=== PATIENT | female | born 1990 ===

== ENCOUNTER 2017-02-20 16:14 | Emergency (ER) | payer SELFPAY ==
[2017-02-20 16:14] VITALS: BMI 27.0
[2017-02-20 16:26] VITALS: BP 121/73; PULSE 82; RESP 20; TEMP 98.3; O2SAT 99
--- NOTE | 2017-02-20 17:27 | ED PDOC ---
HPI: Abdomen Time Seen by Provider: 02/20/17 16:51 Chief Complaint (Nursing): Female Genitourinary Chief Complaint (Provider): Abdominal Pain History Per: Patient History/Exam Limitations: no limitations Onset/Duration Of Symptoms: Hrs (x7.5) Outside of [place] travel?: No Current Symptoms Are (Timing): Still Present Severity: Moderate Location Of Pain/Discomfort: Suprapubic, Other (pelvic) Quality Of Discomfort: "Pain" ("electricity") Associated Symptoms: denies: Other (no vaginal bleeding) Additional Complaint(s): Carmen Mariscal is a 26 year old female, with no pertinent past medical history, who presents to the ED on 02/20/17 for the evaluation of moderate suprapubic/ pelvic abdominal pain that she has experienced for approximately 7.5 hours, onset of which was as she had been engaging in sexual intercourse. Pain, described as dalia to "electricity", had reportedly radiated superiorly towards her chest, with patient stating that it had been so strong initially that she had been unable to move on her own. Patient reports experiencing relief after medicating with Advil 400mg, but that pain returned 2 hours later and has persisted since, prompting ED visit. Denies vaginal bleeding. PMD: [facility] Past Medical History Reviewed: Historical Data, Nursing Documentation, Vital Signs Vital Signs: Last Vital Signs Temp 98.3 F 02/20/17 16:24 Pulse 82 02/20/17 16:24 Resp 20 02/20/17 16:24 BP 121/73 02/20/17 16:24 Pulse Ox 99 02/20/17 20:48 - Medical History PMH: No Chronic Diseases - Surgical History Surgical History: No Surg Hx - Family History Family History: States: Unknown Family Hx - Social History Ex-Smoker (has not smoked in the last 12 months): Yes Alcohol: Social Drugs: Denies - Home Medications Home Medications: Ambulatory Orders Medication Instructions Recorded Vit No.130/Iron/FA 1 tab PO DAILY 06/01/16 [ Vitamins] Bethanechol Chloride [Urecholine] 5 mg PO QID #20 tablet 06/03/16 Ferrous Sulfate [Feosol] 325 mg PO BID #60 tab 06/03/16 Ibuprofen [Motrin Tab] 600 mg PO Q6 PRN #30 tab 06/03/16 Ibuprofen [Motrin Tab] 600 mg PO Q6 #30 tab 02/20/17 - Allergies Allergies/Adverse Reactions: Allergies Allergy/AdvReac Type Severity Reaction Status Date / Time No Known Allergies Allergy Verified 02/20/17 16:23 Review of Systems Gastrointestinal: Positive for: Abdominal Pain (suprapubic) Genitourinary Female: Positive for: Pelvic Pain. Negative for: Vaginal Bleeding Physical Exam - Reviewed Nursing Documentation Reviewed: Yes Vital Signs Reviewed: Yes - Physical Exam Appears: Positive for: Non-toxic, No Acute Distress Head Exam: Positive for: ATRAUMATIC, NORMOCEPHALIC Cardiovascular/Chest: Positive for: Regular Rate, Rhythm. Negative for: Murmur Respiratory: Positive for: Normal Breath Sounds. Negative for: Respiratory Distress Gastrointestinal/Abdominal: Positive for: Soft, Tenderness (right suprapubic; (- ) McBurney's). Negative for: Guarding, Rebound Pelvic Exam: Positive for: External Exam Normal, Other (examination chaperoned by Candy GARCÍA). Negative for: Blood, Lesions Neurologic/Psych: Positive for: Alert, Oriented - ECG O2 Sat by Pulse Oximetry: 99 (RA) Pulse Ox Interpretation: Normal Medical Decision Making Medical Decision Makin:51 Initial Impression: abdominal pain during intercourse Initial Plan: * Pelvis/Transvaginal US * Upreg * Udip * Tramadol 50mg PO * Reevaluation 19:00 Patient will be endorsed over to Dieter Quinteros MD, pending US, reevaluation and final disposition. Condition fair. Scribe Attestation: Documented by Emily Ascencio, acting as a scribe for Nancy Guzman MD. Provider Scribe Attestation: All medical record entries made by the Scribe were at my direction and personally dictated by me. I have reviewed the chart and agree that the record accurately reflects my personal performance of the history, physical exam, medical decision making, and the department course for this patient. I have also personally directed, reviewed, and agree with the discharge instructions and disposition. Disposition - Clinical Impression Clinical Impression: Female genitourinary symptoms - Patient ED Disposition Is Patient to be Admitted: Transfer of Care - Disposition [facility]] Disposition: Transfer of Care Disposition Time: 19:00 Condition: STABLE Prescriptions: Ibuprofen [Motrin Tab] 600 mg PO Q6 #30 tab Instructions: Ovarian Cyst (ED) Forms: [facility] ED School/Work Excuse Patient Signed Over To: Dieter Quinteros Handoff Comments: Pending ultrasound.
--- NOTE | 2017-02-20 19:24 | ED PDOC ---
- ECG O2 Sat by Pulse Oximetry: 99 (RA) Medical Decision Making Medical Decision Makin:00 Patient endorsed over to me by Nancy Guzman MD, pending remainder of ED workup, reevaluation and disposition. IMPRESSION: No evidence of ovarian torsion, free fluid, or other significant acute abnormality. 2.1 cm complex cystic lesion in the right ovary, most likely a corpus luteal cyst. 2044: Pt. feeling better, told to f/u w/ BOOKKEEPING MACHINE MECHANIC next week. Return precautions given. Scribe Attestation: Documented by Emily Ascencio, acting as a scribe for Dieter Quinteros MD. Provider Scribe Attestation: All medical record entries made by the Scribe were at my direction and personally dictated by me. I have reviewed the chart and agree that the record accurately reflects my personal performance of the history, physical exam, medical decision making, and the department course for this patient. I have also personally directed, reviewed, and agree with the discharge instructions and disposition. Disposition - Clinical Impression Clinical Impression: Corpus luteum cyst - POA Present On Arrival: None - Disposition [facility]errals[facility] [[facility]] Disposition: Routine/Home Disposition Time: 20:45 Condition: STABLE Prescriptions: Ibuprofen [Motrin Tab] 600 mg PO Q6 #30 tab
--- NOTE | 2017-02-20 20:42 | US ---
EXAM: US Pelvis Complete, Transabdominal US Pelvis, Transvaginal CLINICAL HISTORY: 26 years old, female; Pain; Pelvic pain; Additional info: Suprapubic pain TECHNIQUE: Real-time transabdominal and transvaginal pelvic ultrasound (complete) with image documentation. Transvaginal imaging was used for better evaluation of the endometrium and adnexa. EXAM DATE/TIME: 02/20/2017 4:57 PM COMPARISON: Prior obstetrical ultrasound of 01/15/2016. FINDINGS: Uterus: Within normal limits in appearance. Measures 8.7 x 4.0 x 4.5 cm. Endometrial stripe does not appear abnormally thickened, measuring 1 cm in AP dimensions. Cervix appears closed. Right ovary: Measures 3.1 x 2.2 x 2.7 cm. Contains a 2.1 cm complex cystic lesion. This lesion has a thick wall and demonstrates increased peripheral blood flow on color imaging. It most likely represents a corpus luteal cyst, given its appearance. No followup is warranted based on the imaging findings, unless otherwise clinically indicated. Flow seen in the right ovary on color and Doppler imaging, with no evidence of torsion. Left ovary: Within normal limits in appearance. Measures 2.6 x 1.5 x 2.2 cm. Flow seen in the left ovary on color and Doppler imaging, with no evidence of torsion. Cul-de-sac: No free fluid. IMPRESSION: No evidence of ovarian torsion, free fluid, or other significant acute abnormality. 2.1 cm complex cystic lesion in the right ovary, most likely a corpus luteal cyst. See above for remaining findings.
== END 2017-02-20 21:40 | disposition home or self-care (01) ==
LOC: H.ER 16:14
DX: R10.2 Pelvic and perineal pain (principal); N83.209 Unspecified ovarian cyst, unspecified side

== ENCOUNTER 2018-10-06 21:10 | Emergency (ER) | payer MEDICAID, OTHER ==
[2018-10-06 21:10] VITALS: BMI 25.9
[2018-10-06 21:16] VITALS: BP 113/73; PULSE 96; RESP 16; TEMP 98.5; O2SAT 99
[2018-10-06] MEDS ORDERED: Fluconazole 150 MG TAB PO ONE ×2 (21:40→22:11)
--- NOTE | 2018-10-06 21:41 | ED PDOC ---
HPI: Female Pain Time Seen by Provider: 10/06/18 21:18 Chief Complaint (Nursing): Female Genitourinary Chief Complaint (Provider): vaginal discharge History Per: Patient History/Exam Limitations: no limitations Onset/Duration Of Symptoms: Days (x2) Current Symptoms Are (Timing): Still Present Associated Symptoms: denies: Fever, Chills, Nausea, Vomiting, Diarrhea, Urinary Symptoms Additional Complaint(s): Carmen Mariscal is a 28 year old female, with a past medical history of ovarian cysts, who presents to the emergency department for evaluation of a thick white vaginal discharge associated with itching onset for x2 days. Patient states she has a history of yeast infections with similar symptoms. She did not take any medications prior to arrival. Patient also expresses concern for UTI although she denies any urinary symptoms. Patient reports she is sexually active with one male partner and is not concerned for STDs. She denies any fever, chills, abdominal pain, nausea, vomit, diarrhea, cough, shortness of breath or vaginal bleeding. No further medical complaints. LMP Sep 26. PMD: [facility]. Past Medical History Reviewed: Historical Data, Nursing Documentation, Vital Signs Vital Signs: Last Vital Signs Temp 98.5 F 10/06/18 21:13 Pulse 96 H 10/06/18 21:13 Resp 16 10/06/18 21:13 BP 113/73 10/06/18 21:13 Pulse Ox 99 10/06/18 21:13 - Medical History Other PMH: ovarian cysts - Surgical History Surgical History: No Surg Hx - Family History Family History: States: Unknown Family Hx - Home Medications Home Medications: Ambulatory Orders Medication Instructions Recorded Cetirizine HCl [Zyrtec Allergy] 10 mg PO DAILY 04/22/17 RX: Ketotifen Fumarate [Zaditor] 1 drop BOTHEYES Q8 #1 drops 04/22/17 RX: metroNIDAZOLE 0.75% [Metrogel 1 applic VAG HS #1 tube 04/22/17 Cream] RX: Clotrimazole 1% Vaginal 1 applic VG BID #1 tube 10/06/18 [Lotrimin 1% Vaginal] - Allergies Allergies/Adverse Reactions: Allergies Allergy/AdvReac Type Severity Reaction Status Date / Time No Known Allergies Allergy Verified 10/06/18 21:13 Review of Systems ROS Statement: Except As Marked, All Systems Reviewed And Found Negative Constitutional: Negative for: Fever, Chills Respiratory: Negative for: Cough, Shortness of Breath Gastrointestinal: Negative for: Nausea, Vomiting, Abdominal Pain, Diarrhea Genitourinary Female: Positive for: Vaginal Discharge. Negative for: Dysuria, Frequency, Hematuria, Vaginal Bleeding Physical Exam - Reviewed Nursing Documentation Reviewed: Yes Vital Signs Reviewed: Yes - Physical Exam Comments: GENERAL APPEARANCE: Patient is awake, alert, oriented x 3, in no acute distress. Resting comfortably SKIN: Warm, dry; (-) cyanosis. EYES: (-) conjunctival pallor. ENMT: Mucous membranes moist. Airway patent: (-) stridor. NECK: Supple, FROM CHEST AND RESPIRATORY: (-) wheezing; (-) rales, (-) rhonchi; breath sounds equal bilaterally. Respirations even and nonlabored. HEART AND CARDIOVASCULAR: (-) irregularity ABDOMEN AND GI: Soft; (-) tenderness (-) guarding (-) distention (-) CVA tenderness EXTREMITIES: (-) deformity NEURO AND PSYCH: Mental status as above; (-) focal findings. Gait: Steady. Speech: clear. (-) facial asymmetry - Laboratory Results Urine POC: Negative Urine dip results: Positive for: Blood (lysed). Negative for: Leukocyte Esterase, Nitrate, Ketones, Glucose, Bilirubin, Protein - ECG O2 Sat by Pulse Oximetry: 99 (RA) Pulse Ox Interpretation: Normal Medical Decision Making Medical Decision Making: Time: 21:15 Initial Impression: Yeast infection Initial Plan: -- test --Chlamydia/GC RNA, TMA --Diflucan 150 mg PO --Urine culture --Urinalysis --Reevaluation Upreg: negative 2230 U/A: unremarkable On re-evaluation, patient reports improvement of symptoms. On exam, patient remains AAOx3, in no acute distress. Lungs clear to auscultation, cardiac RRR, abdomen soft, non-tender, repeat neuro exam shows no focal findings. Vitals stable. Lab / Diagnostic results d/w the patient in great detail. Diagnosis of yeast infection, vaginitis d/w the patient. Based on history, exam and diagnostic results, plan will be for outpatient follow up with PMD/DEALER RELATIONSHIP MANAGER. Patient instructed to follow-up with pmd / referral provided / the clinic in 1- 2 days without fail. Advised to take medication as prescribed. Return to the emergency room at any time for any new or worsening symptoms. Patient states she fully agrees with and understands discharge instructions. States that she agrees with the plan and disposition. Verbalized and repeated discharge instructions and plan. I have given the patient opportunity to ask any additional questions. Scribe Attestation: Documented by Jose L Pritchett, acting as a scribe for Joyce Simon PA-C Provider Scribe Attestation: All medical record entries made by the Scribe were at my direction and personally dictated by me. I have reviewed the chart and agree that the record accurately reflects my personal performance of the history, physical exam, medical decision making, and the department course for this patient. I have also personally directed, reviewed, and agree with the discharge instructions and disposition. Disposition - Clinical Impression Clinical Impression: Yeast infection - Patient ED Disposition Is Patient to be Admitted: No Counseled Patient/Family Regarding: Studies Performed, Diagnosis, Need For Followup, Rx Given - Disposition [facility]errals: [facility] [Outside] Disposition: Routine/Home Disposition Time: 22:30 Condition: STABLE Additional Instructions: The emergency medical care you received today was directed at your acute symptoms. If you were prescribed any medication, please fill it and take as directed. It may take several days for your symptoms to resolve. Return to the Emergency Department if your symptoms worsen, do not improve, or if you have any other problems. Please contact your doctor in 2 days for re-evaluation and follow up / or call one of the physicians/clinics you have been referred to that are listed on the Patient Visit Information form that is included in your discharge packet. Bring any paperwork you were given at discharge with you along with any medications you are taking to your follow up visit. Our treatment cannot replace ongoing medical care by a primary care provider (PCP) outside of the emergency department. Prescriptions: RX: Clotrimazole 1% Vaginal [Lotrimin 1% Vaginal] 1 applic VG BID #1 tube Instructions: Vaginal Yeast Infection (DC), Yeast Infection (DC), Vaginitis Forms: [facility] ([place]er) Print Language: FRISIAN - POA Present On Arrival: None Results - Lab Results Lab Results: 10/06/18 21:52 Urine Color Yellow Urine Clarity Slighty-cloudy Urine pH 6.0 Ur Specific [place] 1.026 Urine Protein 30 Urine Glucose (UA) Neg Urine Ketones Negative Urine Blood Negative Urine Nitrate Negative Urine Bilirubin Negative Urine Urobilinogen 0.2-1.0 Ur Leukocyte Esterase Neg Urine RBC (Auto) < 1 Urine Microscopic WBC 1 Ur Squamous Epith Cells 2 Urine Bacteria Rare Hyaline Casts 0-2
[2018-10-06 22:11] LABS: SQUAMOUS EPITHIAL 2 /hpf (0-5); URINE BACTERIA RARE (<OCC); URINE BILIRUBIN NEGATIVE (NEGATIVE); URINE BLOOD NEGATIVE (NEGATIVE); URINE CLARITY SLIGHTY-CLOUDY (Clear); URINE COLOR YELLOW (YELLOW); URINE GLUCOSE (UA) NEG (Normal); URINE HYALINE CAST 0-2 /hpf (0-2); URINE LEUKOCYTE ESTERASE NEG Leu/uL (Negative); URINE PROTEIN 30 mg/dL (NEGATIVE); URINE UROBILINOGEN 0.2-1.0 mg/dL (0.2-1.0)
== END 2018-10-06 23:05 | disposition home or self-care (01) ==
LOC: H.ER 21:10
DX: B37.3 Candidiasis of vulva and vagina (principal)

== ENCOUNTER 2018-11-17 22:06 | Emergency (ER) | payer MEDICAID ==
[2018-11-17 22:07] VITALS: BMI 25.9
[2018-11-17 22:36] VITALS: BP 125/78; PULSE 84; RESP 16; TEMP 98.9; O2SAT 98
--- NOTE | 2018-11-17 23:05 | ED PDOC ---
HPI: Female Pain Time Seen by Provider: 11/17/18 22:45 Chief Complaint (Nursing): Female Genitourinary Chief Complaint (Provider): vaginal discharge History Per: Patient History/Exam Limitations: no limitations Onset/Duration Of Symptoms: Days (one month) Current Symptoms Are (Timing): Still Present Additional Complaint(s): 28 y/o female presents for evaluation of vaginal discharge x 1 month. PAtient states she was here last month at onset; was prescribed a pill for a yeast infection but states it did not help. Has not followed up with a Research Clerk. Patient reports [id number] discharge with a "foul" odor. Denies fever, nausea/vomiting, abdominal pain, pelvic pain, vaginal bleeding/discharge, dysuria, hematuria. Patient is sexually active with one partner, which she has not had relations with since last visit. No reason to suspect STD. Past Medical History Reviewed: Historical Data, Nursing Documentation, Vital Signs Vital Signs: Last Vital Signs Temp 98.9 F 11/17/18 22:32 Pulse 84 11/17/18 22:32 Resp 16 11/17/18 22:32 BP 125/78 11/17/18 22:32 Pulse Ox 98 11/17/18 22:32 - Medical History PMH: No Chronic Diseases - Surgical History Surgical History: No Surg Hx - Family History Family History: States: Unknown Family Hx - Living Arrangements Living Arrangements: With Family - Immunization History Hx Tetanus Toxoid Vaccination: No Hx Influenza Vaccination: No Hx Pneumococcal Vaccination: No - Home Medications Home Medications: Ambulatory Orders Medication Instructions Recorded Cetirizine HCl [Zyrtec Allergy] 10 mg PO DAILY 04/22/17 Ketotifen Fumarate [Zaditor] 1 drop BOTHEYES Q8 #1 drops 04/22/17 metroNIDAZOLE 0.75% [Metrogel 1 applic VAG HS #1 tube 04/22/17 Cream] Clotrimazole 1% Vaginal [Lotrimin 1 applic VG BID #1 tube 10/06/18 1% Vaginal] Fluconazole [Diflucan] 150 mg PO ONCE #2 tab 11/17/18 metroNIDAZOLE [Flagyl] 500 mg PO Q12 #14 tab 11/17/18 - Allergies Allergies/Adverse Reactions: Allergies Allergy/AdvReac Type Severity Reaction Status Date / Time No Known Allergies Allergy Verified 11/17/18 22:32 Review of Systems ROS Statement: Except As Marked, All Systems Reviewed And Found Negative Genitourinary Female: Positive for: Vaginal Discharge Physical Exam - Reviewed Nursing Documentation Reviewed: Yes Vital Signs Reviewed: Yes - Physical Exam Appears: Positive for: Well, Non-toxic, No Acute Distress Head Exam: Positive for: ATRAUMATIC, NORMAL INSPECTION, NORMOCEPHALIC Skin: Positive for: Normal Color Eye Exam: Positive for: Normal appearance ENT: Positive for: Normal ENT Inspection Cardiovascular/Chest: Positive for: Regular Rate, Rhythm Respiratory: Positive for: Normal Breath Sounds Gastrointestinal/Abdominal: Positive for: Normal Exam, Bowel Sounds, Soft. Negative for: Tenderness Pelvic Exam: Positive for: External Exam Normal, No Cerv. Motion Tender, Discharge (white/clear discharge. 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 Patient was instructed to follow up with Research Clerk for further evaluation Return precautions given Disposition - Clinical Impression Clinical Impression: Yeast infection, Bacterial vaginosis - Patient ED Disposition Is Patient to be Admitted: No Counseled Patient/Family Regarding: Studies Performed, Diagnosis, Need For Followup, Rx Given - Disposition [facility]errals[facility] [[facility]] Disposition: Routine/Home Disposition Time: 23:18 Condition: IMPROVED Prescriptions: Fluconazole [Diflucan] 150 mg PO ONCE #2 tab metroNIDAZOLE [Flagyl] 500 mg PO Q12 #14 tab Instructions: Bacterial Vaginosis, Vulvovaginal Yeast Infection
== END 2018-11-17 23:54 | disposition home or self-care (01) ==
LOC: H.ER 22:06
DX: N76.0 Acute vaginitis (principal); B37.3 Candidiasis of vulva and vagina

== ENCOUNTER 2018-12-15 21:57 | Emergency (ER) | payer MEDICAID ==
[2018-12-15 21:57] VITALS: BMI 25.9
[2018-12-15 22:42] VITALS: O2SAT 100
--- NOTE | 2018-12-15 23:13 | ED PDOC ---
HPI: Female Pain Time Seen by Provider: 12/15/18 22:50 Chief Complaint (Nursing): Female Genitourinary Chief Complaint (Provider): Female Genitourinary History Per: Patient History/Exam Limitations: no limitations Onset/Duration Of Symptoms: Days (x2 weeks) Current Symptoms Are (Timing): Still Present Quality Of Discomfort: Cramping Associated Symptoms: Other (vaginal bleeding) Additional Complaint(s): 28 year old female with a history of ovarian cysts presents to the ED with irregular menstrual bleeding. A few weeks ago, patient was diagnosed with bacterial vaginosis in this ED and prescribed medications. However, she did not fill the prescription until this Wednesday. She states she had a normal period the first week of November, but two weeks ago she started bleeding again. Patient describes vaginal bleeding as menstrual spotting associated menstrual cramping. She denies any fever, back pain, urinary symptoms ,or any other vaginal discharge except the vaginal bleeding. PMD: none provided Abnormal Vaginal Bleeding: Yes Past Medical History Reviewed: Historical Data, Nursing Documentation, Vital Signs Vital Signs: Last Vital Signs Temp 98.3 F 12/15/18 22:40 Pulse 99 H 12/15/18 22:40 Resp 17 12/15/18 22:40 BP 133/88 12/15/18 22:40 Pulse Ox 100 12/15/18 22:40 - Medical History Other PMH: ovarian cysts - Surgical History Surgical History: No Surg Hx - Family History Family History: States: Unknown Family Hx - Immunization History Hx Tetanus Toxoid Vaccination: No Hx Influenza Vaccination: No Hx Pneumococcal Vaccination: No - Home Medications Home Medications: Ambulatory Orders Medication Instructions Recorded Cetirizine HCl [Zyrtec Allergy] 10 mg PO DAILY 04/22/17 Ketotifen Fumarate [Zaditor] 1 drop BOTHEYES Q8 #1 drops 04/22/17 metroNIDAZOLE 0.75% [Metrogel 1 applic VAG HS #1 tube 04/22/17 Cream] Clotrimazole 1% Vaginal [Lotrimin 1 applic VG BID #1 tube 10/06/18 1% Vaginal] Fluconazole [Diflucan] 150 mg PO ONCE #2 tab 11/17/18 metroNIDAZOLE [Flagyl] 500 mg PO Q12 #14 tab 11/17/18 - Allergies Allergies/Adverse Reactions: Allergies Allergy/AdvReac Type Severity Reaction Status Date / Time No Known Allergies Allergy Verified 11/17/18 22:32 Review of Systems ROS Statement: Except As Marked, All Systems Reviewed And Found Negative Constitutional: Negative for: Fever Genitourinary Female: Positive for: Vaginal Bleeding, Other (menstrual cramping). Negative for: Vaginal Discharge Musculoskeletal: Negative for: Back Pain Physical Exam - Reviewed Nursing Documentation Reviewed: Yes Vital Signs Reviewed: Yes - Physical Exam Appears: Positive for: Non-toxic, No Acute Distress Head Exam: Positive for: ATRAUMATIC, NORMOCEPHALIC Skin: Positive for: Normal Color, Warm, Dry Eye Exam: Positive for: EOMI, Normal appearance, PERRL Neck: Positive for: Normal, Painless ROM Cardiovascular/Chest: Positive for: Regular Rate, Rhythm Respiratory: Positive for: Normal Breath Sounds. Negative for: Respiratory Distress Gastrointestinal/Abdominal: Positive for: Normal Exam, Soft. Negative for: Tenderness Pelvic Exam: Positive for: Other (deferred) Back: Positive for: Normal Inspection Extremity: Positive for: Normal ROM (upper and lower). Negative for: Pedal Edema, Deformity Neurologic/Psych: Positive for: Alert, Oriented (x3). Negative for: Motor/Sensory Deficits - Laboratory Results Result Diagrams: 12/15/18 23:44 12/15/18 23:44 - ECG O2 Sat by Pulse Oximetry: 100 (RA) Pulse Ox Interpretation: Normal Medical Decision Making Medical Decision Making: Time: 2257 Impression: 27 y/o with irregular menses Plan: --Labs --US Time: 126 US Pelvis: Findings: Uterus is normal in size measuring 9x4.7x5.9 cm. Endometrium is normal in thickness measuring 7 mm. Anteverted uterus. Unremarkable cervical length measuring 4.5 cm. Normal ovaries. Impression: Unremarkable exam Time: 144 --Labs reviewed, no clinically significant abnormalities. Patient is stable for discharge home. Provider reinforced need to follow up with a metal temperer. Scribe Attestation: Documented by Jocelyn Bearden, acting as a scribe for Edmond Batres MD. Provider Scribe Attestation: All medical record entries made by the Scribe were at my direction and perso karin dictated by me. I have reviewed the chart and agree that the record accurately reflects my personal performance of the history, physical exam, medical decision making, and the department course for this patient. I have also personally directed, reviewed, and agree with the discharge instructions and disposition. Disposition - Clinical Impression Clinical Impression: Menometrorrhagia - Disposition [facility] [[facility]] Disposition Time: 01:45 Condition: STABLE Instructions: Absent or Irregular Periods, Heavy Periods Forms: [facility] ([place]ian)
[2018-12-15 23:35] LABS: SQUAMOUS EPITHIAL 2 /hpf (0-5); URINE BILIRUBIN NEGATIVE (NEGATIVE); URINE BLOOD LARGE (NEGATIVE); URINE CLARITY SLIGHTY-CLOUDY (Clear); URINE COLOR STRAW (YELLOW); URINE GLUCOSE (UA) NEG (NEGATIVE); URINE LEUKOCYTE ESTERASE NEG Leu/uL (Negative); URINE PROTEIN NEGATIVE (NEGATIVE); URINE UROBILINOGEN 0.2-1.0 mg/dL (0.2-1.0)
[2018-12-15 23:54] LABS: BASO # 0.1 K/uL (0.0-0.2); BASO % 0.8 % (0.0-2.0); EOS # 0.2 K/uL (0.0-0.7); EOS % 2.9 % (0.0-4.0); HEMOGLOBIN 12.6 g/dL (12.0-16.0); LYMPH # 2.1 K/uL (1.0-4.3); LYMPH % 26.4 % (20.0-40.0); MEAN CELL VOLUME 92.4 fl (81.0-99.0); MEAN CORPUSCULAR HEMOGLOBIN 30.9 pg (27.0-31.0); MEAN CORPUSCULAR HGB CONC 33.4 g/dL (33.0-37.0); MEAN PLATELET VOLUME 9.3 fl (7.2-11.7); MONO # 0.4 K/uL (0.0-0.8); MONO % 4.9 % (0.0-10.0); NEUT # 5.1 K/uL (1.8-7.0); RBC 4.09 Mil/uL (3.80-5.20); RED CELL DISTRIBUTION WIDTH 13.5 % (11.5-14.5); WHITE BLOOD COUNT 7.9 K/uL (4.8-10.8)
[2018-12-16 00:02] LABS: ALB/GLOB RATIO 1.3 (1.0-2.1); ALBUMIN 4.3 g/dL (3.5-5.0); ALT/SGPT 34 U/L (9-52); AST/SGOT 40 U/L (14-36); BLOOD UREA NITROGEN 21 mg/dl (7-17); CALCIUM 9.4 mg/dL (8.4-10.2); GFR NON-AFRICAN AMERICAN > 60
[2018-12-16 01:57] VITALS: BP 121/84; PULSE 84; RESP 16; TEMP 98.4
--- NOTE | 2018-12-16 10:53 | US ---
Date of service: 12/15/2018 HISTORY: r/o ov cyst/torsion COMPARISON: Pelvic ultrasound dated 02/20/2017. TECHNIQUE: Grayscale, color Doppler and spectral evaluation the pelvis performed transabdominally FINDINGS: UTERUS: Measures 9.0 x 4.7 x 5.9 cm. Anteverted. Normal in size and appearance. No fibroid or other mass lesion seen. ENDOMETRIUM: Measures 7 mm in diameter. Unremarkable. CERVIX: No cervical abnormality identified. RIGHT OVARY: Measures 3.5 x 2.6 x 2.8 cm. No solid mass. Normal flow. LEFT OVARY: Measures 4.5 x 2.2 x 1.8 cm. No solid mass. Normal flow. FREE FLUID: No significant free fluid noted. OTHER FINDINGS: None. IMPRESSION: Unremarkable pelvic ultrasound.
== END 2018-12-16 01:55 | disposition home or self-care (01) ==
LOC: H.ER 21:57
DX: N92.1 Excessive and frequent menstruation with irregular cycle (principal)

== ENCOUNTER 2019-02-28 02:17 | Emergency (ER) | payer MEDICAID ==
[2019-02-28 02:17] VITALS: BMI 25.9
[2019-02-28 02:28] VITALS: RESP 18
--- NOTE | 2019-02-28 02:48 | ED PDOC ---
HPI: Psych/Substance Abuse Time Seen by Provider: 02/28/19 02:35 Chief Complaint (Nursing): Psychiatric Evaluation Chief Complaint (Provider): clearance History Per: Patient Additional Complaint(s): 28 y/o female here in police custody for clearance for incarceration. Patient crying; states she her children's father has full custody of their children and she "had a break down" tonight. Patient states she feels depressed. Patient denies suicidal/homicidal ideations, hallucinations, acute physical complaints. Past Medical History Reviewed: Historical Data, Nursing Documentation, Vital Signs Vital Signs: Last Vital Signs Temp 99.5 F 02/28/19 02:23 Pulse 114 H 02/28/19 02:23 Resp 18 02/28/19 02:23 BP 131/88 02/28/19 02:23 Pulse Ox 99 02/28/19 02:23 - Medical History PMH: No Chronic Diseases - Surgical History Surgical History: No Surg Hx - Family History Family History: States: Unknown Family Hx - Living Arrangements Living Arrangements: With Family - Immunization History Hx Tetanus Toxoid Vaccination: No Hx Influenza Vaccination: No Hx Pneumococcal Vaccination: No - Home Medications Home Medications: Ambulatory Orders Medication Instructions Recorded Cetirizine HCl [Zyrtec Allergy] 10 mg PO DAILY 04/22/17 Ketotifen Fumarate [Zaditor] 1 drop BOTHEYES Q8 #1 drops 04/22/17 metroNIDAZOLE 0.75% [Metrogel 1 applic VAG HS #1 tube 04/22/17 Cream] Clotrimazole 1% Vaginal [Lotrimin 1 applic VG BID #1 tube 10/06/18 1% Vaginal] Fluconazole [Diflucan] 150 mg PO ONCE #2 tab 11/17/18 metroNIDAZOLE [Flagyl] 500 mg PO Q12 #14 tab 11/17/18 - Allergies Allergies/Adverse Reactions: Allergies Allergy/AdvReac Type Severity Reaction Status Date / Time No Known Allergies Allergy Verified 02/28/19 02:23 Review of Systems ROS Statement: Except As Marked, All Systems Reviewed And Found Negative Psych: Positive for: Depression Physical Exam - Reviewed Nursing Documentation Reviewed: Yes Vital Signs Reviewed: Yes - Physical Exam Appears: Positive for: Well, Non-toxic, Uncomfortable Head Exam: Positive for: ATRAUMATIC, NORMAL INSPECTION, NORMOCEPHALIC Skin: Positive for: Normal Color Eye Exam: Positive for: Normal appearance ENT: Positive for: Normal ENT Inspection Cardiovascular/Chest: Positive for: Regular Rate, Rhythm Respiratory: Positive for: Normal Breath Sounds Gastrointestinal/Abdominal: Positive for: Normal Exam Back: Positive for: Normal Inspection Extremity: Positive for: Normal ROM Neurological/Psych: Positive for: Awake, Alert, Oriented (x3) - ECG O2 Sat by Pulse Oximetry: 99 - Progress ED Course And Treament: Patient evaluated by restaurant worker and cleared for discharge as per Dr. Sim Disposition - Clinical Impression Clinical Impression: Adjustment disorder - Patient ED Disposition Is Patient to be Admitted: No Counseled Patient/Family Regarding: Diagnosis, Need For Followup - Disposition Disposition: Routine/Home Disposition Time: 03:14 Condition: STABLE Additional Instructions: Patient medically and psychiatrically cleared for incarceration Instructions: Adjustment Disorder
[2019-02-28 03:18] VITALS: BP 122/82; PULSE 96; TEMP 99; O2SAT 100
== END 2019-02-28 03:17 | disposition home or self-care (01) ==
LOC: H.ER 02:17
DX: F43.20 Adjustment disorder, unspecified (principal); Z00.8 Encounter for other general examination

== ENCOUNTER 2019-02-28 05:28 | Emergency (ER) | payer MEDICAID ==
--- NOTE | 2019-02-28 05:42 | ED PDOC ---
HPI: Abdomen Chief Complaint (Provider): vomiting History Per: Patient History/Exam Limitations: no limitations Onset/Duration Of Symptoms: Hrs Current Symptoms Are (Timing): Still Present Location Of Pain/Discomfort: Epigastric Additional Complaint(s): 28 y/o female returns to ED in police custody for evaluation of multiple vomiting episodes x 1 hour. Associated upper abdominal pain. Denies fever, cough, congestion, chest pain, shortness of breath, palpitations, changes in bowel movements, urinary symptoms. Patient states her last meal was a cheeseburger at 2am. <Suki Toney - Last Filed: 02/28/19 05:44> <Edmond Batres - Last Filed: 02/28/19 06:57> Time Seen by Provider: 02/28/19 05:35 Past Medical History Reviewed: Historical Data, Nursing Documentation, Vital Signs - Medical History PMH: No Chronic Diseases Denies: Diabetes, Hepatitis, HIV, HTN, Seizures, Sexually Transmitted Disease - Surgical History Surgical History: No Surg Hx - Family History Family History: States: Unknown Family Hx - Immunization History Hx Tetanus Toxoid Vaccination: No Hx Influenza Vaccination: No Hx Pneumococcal Vaccination: No <Suki Toney - Last Filed: 02/28/19 05:44> Vital Signs: Last Vital Signs Temp 98 F 02/28/19 05:40 Pulse 106 H 02/28/19 05:40 Resp 16 02/28/19 05:40 BP 119/79 02/28/19 05:40 Pulse Ox 100 02/28/19 05:40 <Edmond Batres - Last Filed: 02/28/19 06:57> - Home Medications Home Medications: Ambulatory Orders Medication Instructions Recorded Cetirizine HCl [Zyrtec Allergy] 10 mg PO DAILY 04/22/17 Ketotifen Fumarate [Zaditor] 1 drop BOTHEYES Q8 #1 drops 04/22/17 metroNIDAZOLE 0.75% [Metrogel 1 applic VAG HS #1 tube 04/22/17 Cream] Clotrimazole 1% Vaginal [Lotrimin 1 applic VG BID #1 tube 10/06/18 1% Vaginal] Fluconazole [Diflucan] 150 mg PO ONCE #2 tab 11/17/18 metroNIDAZOLE [Flagyl] 500 mg PO Q12 #14 tab 11/17/18 Famotidine [Pepcid] 20 mg PO Q12 #14 tab 02/28/19 Ondansetron ODT [Zofran ODT] 4 mg PO Q6 PRN #8 odt 02/28/19 - Allergies Allergies/Adverse Reactions: Allergies Allergy/AdvReac Type Severity Reaction Status Date / Time No Known Allergies Allergy Verified 02/28/19 02:23 Review of Systems ROS Statement: Except As Marked, All Systems Reviewed And Found Negative Gastrointestinal: Positive for: Nausea, Vomiting, Abdominal Pain <Suki Toney - Last Filed: 02/28/19 05:44> Physical Exam - Reviewed Nursing Documentation Reviewed: Yes Vital Signs Reviewed: Yes - Physical Exam Appears: Positive for: Well, Non-toxic, No Acute Distress Head Exam: Positive for: ATRAUMATIC, NORMAL INSPECTION, NORMOCEPHALIC Skin: Positive for: Normal Color Eye Exam: Positive for: Normal appearance ENT: Positive for: Normal ENT Inspection Cardiovascular/Chest: Positive for: Regular Rate, Rhythm Respiratory: Positive for: Normal Breath Sounds Gastrointestinal/Abdominal: Positive for: Bowel Sounds, Soft, Tenderness ( epigastric) Back: Positive for: Normal Inspection Extremity: Positive for: Normal ROM Neurological/Psych: Positive for: Awake, Alert, Oriented (x3) <Suki Toney - Last Filed: 02/28/19 05:44> - Progress ED Course And Treament: -cbc -cmp -lipase -upreg -urinalysis -IV NS bolus -IV pepcid -IV zofran <Suki Toney - Last Filed: 02/28/19 05:44> - Laboratory Results Result Diagrams: 02/28/19 05:52 02/28/19 05:52 Lab Results: Total Bilirubin 0.5 mg/dl (0.2-1.3) 02/28/19 05:52 AST 68 U/L (14-36) H D 02/28/19 05:52 ALT 73 U/L (9-52) H D 02/28/19 05:52 Alkaline Phosphatase 56 U/L (38-126) 02/28/19 05:52 Total Protein 8.6 G/DL (6.3-8.2) H 02/28/19 05:52 Albumin 4.8 g/dL (3.5-5.0) 02/28/19 05:52 Globulin 3.8 gm/dL (2.2-3.9) 02/28/19 05:52 Albumin/Globulin Ratio 1.3 (1.0-2.1) 02/28/19 05:52 Lipase 63 U/L (23-300) 02/28/19 05:52 Urine Color Yellow (YELLOW) 02/28/19 05:52 Urine Clarity Slighty-cloudy (Clear) 02/28/19 05:52 Urine pH 5.0 (5.0-8.0) 02/28/19 05:52 Ur Specific [place] 1.032 (1.003-1.030) H 02/28/19 05:52 Urine Protein 30 mg/dL (NEGATIVE) 02/28/19 05:52 Urine Glucose (UA) Neg mg/dL (NEGATIVE) 02/28/19 05:52 Urine Ketones Trace mg/dL (NEGATIVE) 02/28/19 05:52 Urine Blood Small (NEGATIVE) 02/28/19 05:52 Urine Nitrate Negative (NEGATIVE) 02/28/19 05:52 Urine Bilirubin Negative (NEGATIVE) 02/28/19 05:52 Urine Urobilinogen 0.2-1.0 mg/dL (0.2-1.0) 02/28/19 05:52 Ur Leukocyte Esterase Neg [place]/uL (Negative) 02/28/19 05:52 Urine RBC (Auto) 4 /hpf (0-3) H 02/28/19 05:52 Urine Microscopic WBC 1 /hpf (0-5) 02/28/19 05:52 Ur Squamous Epith Cells 2 /hpf (0-5) 02/28/19 05:52 Urine Bacteria Rare (<OCC) 02/28/19 05:52 <Edmond Batres - Last Filed: 02/28/19 06:57> Medical Decision Making Medical Decision Making: Time: 0650 Labs reviewed and show no significant abnormality. Patient reports symptoms improvement and tolerated PO. Patient stable for discharge. Diagnosis: Gastritis -- Scribe Attestation: Documented by Alison Carlton, acting as a scribe for Edmond Batres MD. Provider Scribe Attestation: All medical record entries made by the Scribe were at my direction and personally dictated by me. I have reviewed the chart and agree that the record accurately reflects my personal performance of the history, physical exam, medical decision making, and the department course for this patient. I have also personally directed, reviewed, and agree with the discharge instructions and disposition. <Edmond Batres - Last Filed: 02/28/19 06:57> Disposition - Disposition Disposition Time: 06:00 Patient Signed Over To: Edmond Batres Handoff Comments: pending labs, re-eval <Suki Toney - Last Filed: 02/28/19 05:44> - Patient ED Disposition Is Patient to be Admitted: No - Disposition Disposition: Discharged/Transfer to Law Enforcement <Edmond Batres - Last Filed: 02/28/19 06:57> - Clinical Impression Clinical Impression: Gastritis - Disposition Condition: STABLE Additional Instructions: Patient is medically and psychiatrically stable for incarceration Prescriptions: Famotidine [Pepcid] 20 mg PO Q12 #14 tab Ondansetron ODT [Zofran ODT] 4 mg PO Q6 PRN #8 odt PRN Reason: Nausea/Vomiting Instructions: Gastritis (DC) Forms: [employer] ([place])
[2019-02-28 05:43] VITALS: BMI 24.7
[2019-02-28] MEDS ORDERED: Sodium Chloride 0.9% 1,000 ML IV STA (05:43)
[2019-02-28 05:44] VITALS: RESP 16; O2SAT 100
[2019-02-28 06:10] LABS: SQUAMOUS EPITHIAL 2 /hpf (0-5); URINE BACTERIA RARE (<OCC); URINE BILIRUBIN NEGATIVE (NEGATIVE); URINE BLOOD SMALL (NEGATIVE); URINE CLARITY SLIGHTY-CLOUDY (Clear); URINE COLOR YELLOW (YELLOW); URINE GLUCOSE (UA) NEG (NEGATIVE); URINE LEUKOCYTE ESTERASE NEG Leu/uL (Negative); URINE PROTEIN 30 mg/dL (NEGATIVE); URINE UROBILINOGEN 0.2-1.0 mg/dL (0.2-1.0)
[2019-02-28 06:13] LABS: BASO % 0.2 % (0.0-2.0); EOS # 0.1 K/uL (0.0-0.7); EOS % 0.9 % (0.0-4.0); HEMOGLOBIN 13.7 g/dL (12.0-16.0); LYMPH # 1.6 K/uL (1.0-4.3); MEAN CELL VOLUME 92.3 fl (81.0-99.0); MEAN CORPUSCULAR HGB CONC 33.5 g/dL (33.0-37.0); MEAN PLATELET VOLUME 9.9 fl (7.2-11.7); MONO # 0.7 K/uL (0.0-0.8); MONO % 4.5 % (0.0-10.0); NEUT # 13.3 K/uL (1.8-7.0); NEUT % 84.4 % (50.0-75.0); RBC 4.42 Mil/uL (3.80-5.20); RED CELL DISTRIBUTION WIDTH 13.3 % (11.5-14.5)
[2019-02-28 06:17] LABS: WHITE BLOOD COUNT 15.8 K/uL (4.8-10.8)
[2019-02-28 06:18] LABS: ALB/GLOB RATIO 1.3 (1.0-2.1); ALBUMIN 4.8 g/dL (3.5-5.0); ALT/SGPT 73 U/L (9-52); AST/SGOT 68 U/L (14-36); BLOOD UREA NITROGEN 19 mg/dl (7-17); CALCIUM 9.6 mg/dL (8.4-10.2); GFR NON-AFRICAN AMERICAN > 60; LIPASE 63 U/L (23-300)
[2019-02-28 07:06] VITALS: BP 126/81; PULSE 92; TEMP 98.2
== END 2019-02-28 07:01 | disposition home or self-care (01) ==
LOC: H.ER 05:28
DX: K29.70 Gastritis, unspecified, without bleeding (principal)
CPT/HCPCS: 80053; 81003; 81025; 83690; 85025; 96374; 99284; J2405; J7030